=== PATIENT | male | born 1965 | race Caucasian/White ===

== ENCOUNTER 2017-07-11 10:43 | Day surgery (SDC) | payer OTHER ==
[2017-07-11 11:44] VITALS: TEMP 98
[2017-07-11] MEDS ORDERED: LACTATED RINGERS 1,000 ML IV ONE (11:55)
[2017-07-11] MEDS ORDERED: LIDOCAINE 1% 20 ML VIAL (10MG/ML) FOR IV START IV ONE (11:55)
[2017-07-11] MEDS ORDERED: fentaNYL (PF) 50 MCG/ML 2 ML AMP IV ONE (12:01)
[2017-07-11] MEDS ORDERED: PROPOFOL 10 MG/ML 20 ML VIAL IV ONE (12:12)
--- NOTE | 2017-07-11 12:16 | P.GSHP ---
History of Present Illness H&P Date: 07/11/17 Chief Complaint: Dysphagia This is a 52-year-old male referred from Dr. Padgett. Patient has had complaints of dysphagia. He states he has trouble eating solid foods. He's had some minimal difficulty with liquids. Past Medical History Past Medical History: Atrial Fibrillation, Chest Pain / Angina, GERD/Reflux Additional Past Medical History / Comment(s): HX. ANGINA, CARDIAC CATH SHOWED NO BLOCKAGE, History of Any Multi-Drug Resistant Organisms: None Reported Past Surgical History: Heart Catheterization Additional Past Surgical History / Comment(s): LEFT 5TH FINGER SEWN BACK ON Past Anesthesia/Blood Transfusion Reactions: No Reported Reaction Past Psychological History: No Psychological Hx Reported Smoking Status: Former smoker Past Alcohol Use History: Rare Past Drug Use History: None Reported Medications and Allergies Home Medications Medication Instructions Recorded Confirmed Type Citalopram Hydrobromide [CeleXA] 10 mg PO DAILY 07/11/17 07/11/17 History Metoprolol Succinate [Toprol XL] 1 tab PO DAILY 07/11/17 07/11/17 History Omeprazole [PriLOSEC] 10 mg PO DAILY 07/11/17 07/11/17 History Allergies Allergy/AdvReac Type Severity Reaction Status Date / Time codeine AdvReac Nausea Verified 07/11/17 11:42 Penicillins AdvReac Nausea Verified 07/11/17 11:41 Surgical - Exam Vital Signs Temp Pulse Resp BP Pulse Ox 98.0 F 70 16 131/86 97 07/11/17 11:35 07/11/17 11:35 07/11/17 11:35 07/11/17 11:35 07/11/17 11:35 - General well developed, no distress - Eyes PERRL - ENT normal pinna - Neck no masses - Respiratory normal expansion - Cardiovascular Rhythm: regular - Abdomen Abdomen: soft, non tender Assessment and Plan Assessment: Dysphagia. We'll perform EGD.
--- NOTE | 2017-07-11 12:26 | P.OP ---
Date of Procedure: 07/11/17 Preoperative Diagnosis: Dysphagia Postoperative Diagnosis: Duodenal ulcer, Antral gastritis Small hiatal hernia Esophagitis Procedure(s) Performed: EGD Anesthesia: MAC Surgeon: David Jasso Pathology: other (Duodenum, antrum, esophagus) Condition: stable Disposition: PACU Description of Procedure: The patient's placed on the endoscopy table in the lateral position. He received IV sedation. The gastric was placed oropharynx passed in the esophagus and into the stomach. Scope was then placed through the pylorus. The first and second portion of the duodenum appeared inflamed. There is evidence of a small ulcer. This was biopsied. The scope was then brought back the antrum and this was mildly inflamed. Biopsies performed. The scope was then retroflexed and the remainder of the stomach appeared normal. There was a small hiatal hernia. The GE junction was at 38 cm. The distal esophagus appeared inflamed and a biopsies performed. The proximal esophagus appeared normal. Scope was withdrawn for patient.
[2017-07-11 13:00] VITALS: BP 125/83; PULSE 66; RESP 18
== END 2017-07-11 13:08 | disposition home or self-care (01) ==
LOC: ORWHC2ENDO 10:43
PROVIDERS: ATTEND Surgery
DX: K29.50 Unspecified chronic gastritis without bleeding (principal); K21.0 Gastro-esophageal reflux disease with esophagitis; K26.9 Duodenal ulcer, unspecified as acute or chronic, without hemorrhage or perforation; K44.9 Diaphragmatic hernia without obstruction or gangrene; I25.10 Atherosclerotic heart disease of native coronary artery without angina pectoris; I48.91 Unspecified atrial fibrillation; Z88.5 Allergy status to narcotic agent; Z88.0 Allergy status to penicillin; Z79.899 Other long term (current) drug therapy; Z87.891 Personal history of nicotine dependence
CPT/HCPCS: 43239; 88305; 88342; J3010; J2704

== ENCOUNTER 2017-09-11 07:38 | Day surgery (SDC) | payer OTHER ==
[2017-09-08 10:28] VITALS: BMI 30.3
[~2017-09-11 07:38] MED LIST: LACTATED RINGERS 1,000 ML IV SCH
[2017-09-11 08:18] VITALS: RESP 16; TEMP 97.4
[2017-09-11] MEDS ORDERED: LIDOCAINE 1% 20 ML VIAL (10MG/ML) FOR IV START INTRADERMA ONE (08:19)
[2017-09-11] MEDS ORDERED: PROPOFOL 10 MG/ML 20 ML VIAL IV ONE (09:12)
[2017-09-11] MEDS ORDERED: LIDOCAINE 1% INJ 10MG/ML (20 ML MDV) ONE (09:12)
--- NOTE | 2017-09-11 09:16 | P.GSHP ---
History of Present Illness H&P Date: 09/11/17 Chief Complaint: Peptic ulcer disease This is a 52-year-old male referred from Dr. Padgett. Patient presents today for EGD. He has a history of peptic ulcer disease and esophagitis. Past Medical History Past Medical History: Atrial Fibrillation, Chest Pain / Angina, GERD/Reflux, Sleep Apnea/CPAP/BIPAP Additional Past Medical History / Comment(s): uses CPAP, hiatal hernia History of Any Multi-Drug Resistant Organisms: None Reported Past Surgical History: Heart Catheterization, Orthopedic Surgery Additional Past Surgical History / Comment(s): LEFT 5TH FINGER SEWN BACK ON, EGD Past Anesthesia/Blood Transfusion Reactions: No Reported Reaction Smoking Status: Former smoker - Past Family History Mother Family Medical History: Cancer Medications and Allergies Home Medications Medication Instructions Recorded Confirmed Type Citalopram Hydrobromide [CeleXA] 10 mg PO DAILY 07/11/17 09/08/17 History Metoprolol Succinate [Toprol XL] 25 mg PO DAILY 07/11/17 09/08/17 History Omeprazole 40 mg PO DAILY #60 capsule. 07/11/17 09/08/17 Rx Allergies Allergy/AdvReac Type Severity Reaction Status Date / Time codeine AdvReac Nausea Verified 09/11/17 08:07 Penicillins AdvReac Nausea Verified 09/11/17 08:07 Surgical - Exam Vital Signs Temp Pulse Resp BP Pulse Ox 97.4 F L 72 16 124/82 95 09/11/17 08:17 09/11/17 08:17 09/11/17 08:17 09/11/17 08:17 09/11/17 08:17 - General well developed, no distress - Eyes PERRL - ENT normal pinna - Neck no masses - Respiratory normal expansion - Cardiovascular Rhythm: regular - Abdomen Abdomen: soft, non tender Assessment and Plan Assessment: History of peptic ulcer disease. We'll perform EGD.
--- NOTE | 2017-09-11 09:25 | P.OP ---
Date of Procedure: 09/11/17 Preoperative Diagnosis: GERD, peptic ulcer disease Postoperative Diagnosis: Antral gastritis Hiatal hernia Esophagitis Procedure(s) Performed: EGD Anesthesia: MAC Surgeon: David Jasso Pathology: other (Antral, esophagus) Condition: stable Disposition: PACU Description of Procedure: The patient's placed on the endoscopy table lateral position. He received IV sedation. The gastroscope placed oropharynx passed in the esophagus and into the stomach. The scope was then placed through the pylorus. The first and second portion of the duodenum appeared normal. The scope was then brought back the antrum and this appeared mildly inflamed. A biopsies performed. The scope was retroflexed and remainder of the stomach appeared normal. There is moderate size hiatal hernia. The GE junction was at 38 cm. The distal esophagus appeared mildly inflamed. A biopsies performed. The proximal esophagus appeared normal. Scope was withdrawn for patient.
[2017-09-11 10:00] VITALS: BP 110/76; PULSE 68
== END 2017-09-11 10:16 | disposition home or self-care (01) ==
LOC: ORWHC2ENDO 07:38
PROVIDERS: ATTEND Surgery
DX: K21.0 Gastro-esophageal reflux disease with esophagitis (principal); K29.50 Unspecified chronic gastritis without bleeding; K44.9 Diaphragmatic hernia without obstruction or gangrene; I48.91 Unspecified atrial fibrillation; I20.9 Angina pectoris, unspecified; G47.33 Obstructive sleep apnea (adult) (pediatric); Z88.5 Allergy status to narcotic agent; Z88.0 Allergy status to penicillin; Z79.899 Other long term (current) drug therapy; Z87.11 Personal history of peptic ulcer disease; Z87.891 Personal history of nicotine dependence; Z80.9 Family history of malignant neoplasm, unspecified; Z99.89 Dependence on other enabling machines and devices
CPT/HCPCS: 43239; 88305; 88342; J2001; J2704

== ENCOUNTER → 2018-07-20 | Outpatient (CLI) | payer OTHER | END | disposition home or self-care (01) | LOC: LABPAT 13:39 | PROVIDERS: ATTEND Surgery | DX: Z01.818 Encounter for other preprocedural examination (principal); F17.200 Nicotine dependence, unspecified, uncomplicated; D64.9 Anemia, unspecified; K21.9 Gastro-esophageal reflux disease without esophagitis | CPT/HCPCS: 93005 ==

== ENCOUNTER 2018-07-27 06:35 | Observation (INO) | payer OTHER ==
[~2018-07-27 06:35] MED LIST changes: +DEXAMETHASONE SOD PHOSPHATE 10 MG/ML 1 ML VIAL IV ONE; +HEPARIN SODIUM,PORCINE 5,000 UNIT/ML 1 ML VIAL SQ ONE; -LACTATED RINGERS 1,000 ML IV SCH; +LIDOCAINE 1% 20 ML VIAL (10MG/ML) FOR IV START INTRADERMA PRN; +MIDAZOLAM 2 MG/2 ML VIAL IV PRN; +ONDANSETRON 4 MG/2 ML VIAL IVP ONE; +fentaNYL (PF) 50 MCG/ML 2 ML AMP IV PRN
[2018-07-27] MEDS: LACTATED RINGERS 1,000 ML IV SCH (07:15)
--- NOTE | 2018-07-27 07:47 | P.GSHP ---
History of Present Illness H&P Date: 07/27/18 Chief Complaint: GERD This is a 53-year-old male referred from Dr. Henson. The patient has had long- standing problems with reflux esophagitis. The patient underwent recent EGD is found have evidence of esophagitis. Patient has been well informed on the procedure of laparoscopic Abdifatah fundoplication. The patient is aware the risk of the conversion to the open procedure, risk of injury to the stomach, liver and spleen. The patient is also a risk of recurrent GERD and dysphagia symptoms. The patient understands there is a postoperative diet of full liquids for 2 weeks after surgery. Past Medical History Past Medical History: Atrial Fibrillation, Asthma, Chest Pain / Angina, GERD/ Reflux, Sleep Apnea/CPAP/BIPAP Additional Past Medical History / Comment(s): C-PAP MACHINE, HIATAL HERNIA, BACK PAIN (FELL 40 FT & BROKE BACK-2005)., SCRAPES ON ARMS (WORK), INGROWN HAIR ABDOMEN., HX OF RECTAL FISSURE., STATES HE HAS A COUGH- SINUS DRAINAGE, SORE THROAT- STATES HE IS SUPPOSED TO [facility] DR HENSON ON MONDAY (07/26/18) TO SEE IF OK TO HAVE SURGERY MONDAY. History of Any Multi-Drug Resistant Organisms: None Reported Past Surgical History: Heart Catheterization Additional Past Surgical History / Comment(s): LEFT HAND TENDON REPAIR. Past Anesthesia/Blood Transfusion Reactions: No Reported Reaction, Motion Sickness Past Psychological History: Anxiety, Depression Smoking Status: Former smoker Past Alcohol Use History: Rare Additional Past Alcohol Use History / Comment(s): QUIT SMOKING 2010, SMOKED 2 1/ 2-3 PPD, SMOKED FOR 30 YEARS. Past Drug Use History: None Reported - Past Family History Mother Family Medical History: Cancer Additional Family Medical History / Comment(s): LUNG AND BRAIN CANCER Medications and Allergies Home Medications Medication Instructions Recorded Confirmed Type Omeprazole 40 mg PO DAILY #60 capsule. 07/11/17 07/27/18 Rx Acetaminophen Tab [Tylenol Tab] 1,500 mg PO DAILY PRN 07/24/18 07/27/18 History Albuterol Sulfate [Proair Hfa] 2 - 3 puff INHALATION Q6HR PRN 07/24/18 07/27/18 History Citalopram Hydrobromide 20 mg PO HS 07/24/18 07/27/18 History [Citalopram HBr] Ibuprofen [Advil] 600 mg PO DAILY PRN 07/24/18 07/24/18 History Metoprolol Tartrate [Lopressor] 25 mg PO BID 07/24/18 07/27/18 History Allergies Allergy/AdvReac Type Severity Reaction Status Date / Time codeine AdvReac Nausea Verified 07/27/18 06:58 Penicillins AdvReac Nausea Verified 07/27/18 06:58 Surgical - Exam Vital Signs Temp Pulse Resp BP Pulse Ox 97.5 F L 78 18 137/94 94 L 07/27/18 07:07 07/27/18 07:07 07/27/18 07:07 07/27/18 07:07 07/27/18 07:07 - General well developed, no distress - Eyes PERRL - ENT normal pinna - Neck no masses - Respiratory normal expansion - Cardiovascular Rhythm: regular - Abdomen Abdomen: soft, non tender Assessment and Plan Assessment: GERD. We'll perform laparoscopic Abdifatah fundoplication.
[2018-07-27] MEDS ORDERED: HYDROmorphone (PF) 1 MG/ML ONE (07:51)
[2018-07-27] MEDS ORDERED: PROPOFOL 10 MG/ML 20 ML VIAL IV ONE (07:51)
[2018-07-27] MEDS ORDERED: fentaNYL (PF) 50 MCG/ML 2 ML AMP ONE (07:51)
[2018-07-27] MEDS ORDERED: SUCCINYLCHOLINE CHLORIDE 100 MG/5 ML SYR IV ONE (07:51)
[2018-07-27] MEDS ORDERED: LIDOCAINE 1% INJ 10MG/ML (20 ML MDV) ONE (07:51)
[2018-07-27] MEDS ORDERED: GLYCOPYRROLATE 0.2 MG/ML 2 ML VIAL ONE (07:51)
[2018-07-27] MEDS ORDERED: NEOSTIGMINE 1 MG/ML 10 ML VIAL ONE (07:51)
[2018-07-27] MEDS ORDERED: ROCURONIUM BROMIDE 10 MG/ML 10 ML VIAL IV ONE (07:51)
[2018-07-27] MEDS: ceFAZolin IN SWFI 2 GM/20 ML SYRINGE IVP ONE ×2 (07:53→08:24)
[2018-07-27] MEDS ORDERED: BUPIVACAIN-EPI 0.25%-1:200,000 30 ML VIAL SQ ONE (08:24)
[2018-07-27] MEDS ORDERED: LACTATED RINGERS 1,000 ML IV ONE (08:51)
--- NOTE | 2018-07-27 09:30 | P.OP ---
Date of Procedure: 07/27/18 Preoperative Diagnosis: GERD Postoperative Diagnosis: GERD Procedure(s) Performed: Laparoscopic Abdifatah fundoplication Anesthesia: DONNIE Surgeon: David Jasso Estimated Blood Loss (ml): 20 Pathology: none sent Condition: stable Disposition: PACU Description of Procedure: The patient was placed on the operating table in the supine position. The patient received general anesthesia. And was placed in dorsal lithotomy position. The patient was prepped and draped in the usual sterile fashion. The skin incision sites were anesthetized with 1% local Xylocaine. The skin was incised in the left periumbilical area and then using a blade less 5 mm trocar under direct visualization panel cavity was entered. After adequate insufflation the laparoscope was then placed into the peritoneal cavity. Next a 5 mm trochars placed in the right epigastric position. Another 5 millimeter trocar the right lateral position. Another 5 millimeter trocar in the left lateral position a 5 mm trocar is placed in the left epigastric position. And then the initial 5 mm trocar was exchanged for a 10 mm trocar. The left lateral lobe liver was retracted. The hernia was seen. The crural defect was then dissected using the Harmonic scissors device. A 360 crural dissection was performed the esophagus stomach was reduced back into the peritoneal Cavity. The crural defect was then closed using 2-0 Ethibond suture. Next the fundus of the stomach was mobilized using the [place] scissors device. and then a 58-[place] bougie dilator was placed oropharynx passed into the esophagus and stomach the fundal plication wrap was then performed by grasping the fundus posteriorly and bringing it around the esophagus and stomach fundoplication was then performed using 2-0 Ethibond suture. Care was taken that the fundal location rested over top of the intra-abdominal esophagus. There was no injury seen to the stomach or esophagus. The dilator was then withdrawn. The abdomen was irrigated there is no bleeding seen. The trochars were then withdrawn and then skin incision sites were closed using 3-0 Monocryl suture Steri-Strips are applied. Patient thought procedure well and sent to recovery room in stable condition.
[2018-07-27] MEDS: HYDROmorphone 1 MG/ML 1 ML SYRINGE IVP PRN ×4 (10:25→20:04)
[2018-07-27] MEDS ORDERED: ALBUTEROL NEBULIZED 2.5 MG/3 ML INHALATION PRN (12:38)
--- NOTE | 2018-07-27 12:40 | P.CONS ---
History of Present Illness - Reason for Consult Consult date: 07/27/18 Medical management Requesting physician: David Jasso - Chief Complaint GERD - History of Present Illness 53-year-old male with a past medical history significant for sleep apnea, GERD, and back pain, who underwent a laparoscopic Abdifatah fundoplication on 07/27/[address] Henson was consulted for medical management. The patient was recently diagnosed outpatient with bronchitis. The patient was seen postoperatively in the recovery room. The patient is sleepy. He states his pain is tolerable. Per nursing, the patient recently received a dose of Dilaudid. The patient does complain of a sore throat. He denies shortness of breath. Denies chest pain or pressure. Denies nausea or vomiting. Vital signs are stable. The patient is waiting general medical bed assignment. REVIEW OF SYSTEMS: Those systems with pertinent positive or pertinent negative responses have been documented in the HPI PHYSICAL EXAM: GENERAL: This is a 53-year-old male in no apparent distress at the time of examination. Pleasant and cooperative. HEENT: Head is atraumatic, normocephalic. Pupils are equal, round, and reactive to light. Sclerae anicteric. Conjunctivae are clear. Mucus membranes of the mouth are moist. Neck is supple. RESPIRATORY: Clear to auscultation. No wheezes, rales, or rhonchi. No use of accessory muscles. Patient maintaining oxygen saturation greater than 92%. No chest wall tenderness is noted on palpation or with deep breathing. CARDIOVASCULAR: Regular rate and rhythm. S1 and S2 noted. No systolic or diastolic murmur auscultated. No JVD noted. No S3 or S4 noted. GASTROINTESTINAL: Incision sites CDI. No distention noted. Abdomen soft and round. Hypoactive bowel sounds auscultated x 4 quadrants. INTEGUMENTARY: No cyanosis. No jaundice. No rashes noted. No cellulitis noted. EXTREMITIES: 2+ peripheral pulses. No evidence of peripheral edema. No calf tenderness noted. NEUROLOGIC: Cranial nerves II-XII intact. PSYCHIATRIC: Sleepy. Oriented x 3. Appropriate affect. Intact judgement and insight. ASSESSMENT: Gastroesophageal reflux disease and esophagitis status post laparoscopic Abdifatah fundoplication Recent outpatient diagnosis of bronchitis History of sleep apnea History of chronic back pain History of nicotine dependence, quit smoking in 2010 PLAN: Continue postoperative care per Dr. Jasso Pain control Clear liquid diet Home meds as appropriate Monitor labs Monitor vital signs and address as appropriate Further recommendations pending patient's course Thank you for this consultation We will continue to follow with George during his hospitalization Nurse practitioner note has been reviewed by physician. Signing provider agrees with the documented findings, assessment, and plan of care. Past Medical History Past Medical History: Atrial Fibrillation, Asthma, Chest Pain / Angina, GERD/ Reflux, Sleep Apnea/CPAP/BIPAP Additional Past Medical History / Comment(s): C-PAP MACHINE, HIATAL HERNIA, BACK PAIN (FELL 40 FT & BROKE BACK-2005)., SCRAPES ON ARMS (WORK), INGROWN HAIR ABDOMEN., HX OF RECTAL FISSURE., STATES HE HAS A COUGH- SINUS DRAINAGE, SORE THROAT- STATES HE IS SUPPOSED TO [facility] DR HENSON ON MONDAY (07/26/18) TO SEE IF OK TO HAVE SURGERY MONDAY. History of Any Multi-Drug Resistant Organisms: None Reported Past Surgical History: Heart Catheterization Additional Past Surgical History / Comment(s): LEFT HAND TENDON REPAIR. Past Anesthesia/Blood Transfusion Reactions: No Reported Reaction, Motion Sickness Past Psychological History: Anxiety, Depression Smoking Status: Former smoker Past Alcohol Use History: Rare Additional Past Alcohol Use History / Comment(s): QUIT SMOKING 2010, SMOKED 2 1/ 2-3 PPD, SMOKED FOR 30 YEARS. Past Drug Use History: None Reported - Past Family History Mother Family Medical History: Cancer Additional Family Medical History / Comment(s): LUNG AND BRAIN CANCER Medications and Allergies Home Medications Medication Instructions Recorded Confirmed Type Omeprazole 40 mg PO DAILY #60 capsule. 07/11/17 07/27/18 Rx Acetaminophen Tab [Tylenol Tab] 1,500 mg PO DAILY PRN 07/24/18 07/27/18 History Albuterol Sulfate [Proair Hfa] 2 - 3 puff INHALATION Q6HR PRN 07/24/18 07/27/18 History Citalopram Hydrobromide 20 mg PO HS 07/24/18 07/27/18 History [Citalopram HBr] Ibuprofen [Advil] 600 mg PO DAILY PRN 07/24/18 07/24/18 History Metoprolol Tartrate [Lopressor] 25 mg PO BID 07/24/18 07/27/18 History Allergies Allergy/AdvReac Type Severity Reaction Status Date / Time codeine AdvReac Nausea Verified 07/27/18 06:58 Penicillins AdvReac Nausea Verified 07/27/18 06:58 Physical Exam Vitals: Vital Signs Temp Pulse Pulse Resp BP Pulse Ox 07/27/18 12:06 97 16 156/90 94 L 07/27/18 11:40 92 16 166/99 94 L 07/27/18 11:10 104 H 18 144/76 96 07/27/18 10:40 84 16 144/76 94 L 07/27/18 10:25 74 16 148/80 95 07/27/18 10:10 88 16 153/82 98 07/27/18 09:55 79 16 154/80 98 07/27/18 09:40 81 16 163/95 97 07/27/18 09:25 79 16 163/95 97 07/27/18 09:12 97.4 F L 74 14 170/95 94 L 07/27/18 07:07 97.5 F L 78 18 137/94 94 L Intake and Output 07/26/18 07/27/18 07/27/18 22:59 06:59 14:59 Intake Total 1600 Output Total 50 Balance 1550 Intake: IV 1600 Output: Estimated Blood Loss 50
[2018-07-27 13:18] VITALS: BMI 30.5
--- NOTE | 2018-07-27 14:34 | FL ---
EXAMINATION TYPE: FL esophagus cervic/pharynx DATE OF EXAM: 07/27/2018 LIMITED UGI-ESOPHAGRAM: CLINICAL HISTORY: Post Vasquez fundoplication TECHNIQUE: Single contrast technique is utilized with Omnipaque. FINDINGS: Esophagus dilates to normal caliber has normal contour to the distal esophagus. There is se juana stenosis to the level of the Vasquez fundoplication. Initial fluoroscopic images demonstrate cont rast passing through the Vasquez fundoplication. Additional contrast was not administered. The patient became nauseous. Following a short rest patient and 3 overhead radiographs obtained. Contrast remains within the dista l esophagus as well as some contrast into the stomach. No free air is evident. No extravasation of co ntrast. Fluoroscopy time 1.03 minutes Images: 12 IMPRESSION: 1. Severe hesitancy passing through the Vasquez fundoplication. 2. No extravasation of contrast. 3. Consider follow-up examination.
[2018-07-27] MEDS: METOCLOPRAMIDE 5 MG/ML 2 ML VIAL IVP SCH ×3 (14:42→23:29)
[2018-07-27] MEDS: D5-0.45% NACL WITH KCL 20MEQ/L 1,000 ML IV SCH ×2 (14:45→22:11)
[2018-07-27] MEDS: METOPROLOL TARTRATE 25 MG TAB PO SCH (20:04)
[2018-07-27] MEDS: FAMOTIDINE 20 MG/2 ML VIAL IV SCH (20:04)
[2018-07-27] MEDS: ONDANSETRON 4 MG/2 ML VIAL IVP PRN (20:04)
[2018-07-27] MEDS ORDERED: CITALOPRAM HYDROBROMIDE 20 MG TAB PO SCH (21:00)
[2018-07-28] MEDS: HYDROmorphone 1 MG/ML 1 ML SYRINGE IVP PRN ×3 (00:27→09:38)
[2018-07-28] MEDS: ONDANSETRON 4 MG/2 ML VIAL IVP PRN ×2 (03:36→08:11)
[2018-07-28] MEDS: METOCLOPRAMIDE 5 MG/ML 2 ML VIAL IVP SCH ×3 (05:35→17:09)
[2018-07-28] MEDS: LACTATED RINGERS 1,000 ML IV SCH (05:40)
[2018-07-28] MEDS: D5-0.45% NACL WITH KCL 20MEQ/L 1,000 ML IV SCH ×3 (07:05→21:43)
--- NOTE | 2018-07-28 09:27 | FL ---
EXAMINATION TYPE: FL UGI w esophagus DATE OF EXAM: 07/28/2018 COMPARISON: Previous study of yesterday. HISTORY: Status post Arash fundoplication TECHNIQUE: A single contrast UGI study is performed. FINDINGS: The patient swallowed contrast with ease. There is prompt egress of contrast from the esoph brenda into the stomach. There is no evidence of significant obstruction. There is no extravasation of contrast. No significant free air was seen. The ligament of Treitz is in the normal location. There i s contrast within the colon from yesterday's examination. IMPRESSION: STATUS POST ARASH FUNDOPLICATION.
[2018-07-28] MEDS: FAMOTIDINE 20 MG/2 ML VIAL IV SCH ×2 (09:32→20:13)
[2018-07-28] MEDS: METOPROLOL TARTRATE 25 MG TAB PO SCH ×2 (09:32→20:13)
[2018-07-28] MEDS: ENOXAPARIN 40 MG/0.4 ML SYRINGE SQ SCH (09:32)
[2018-07-28] MEDS: DIAZEPAM 5 MG TAB PO PRN ×2 (11:28→20:13)
--- NOTE | 2018-07-28 12:05 | CONS ---
CONSULTATION 53-year-old male, had difficulty with GERD for a long period of time. Tried all the medications that were available, protein pump inhibitors without any success and at this time has proceeded with the Abdifatah fundoplication procedure with Dr. Jasso. He went through it well. He also had a previous history of some outpatient bronchitis. He had been on Levaquin up to the day of admission and surgery. He also has history of some chronic back pain and nicotine dependence, he quit smoking in 2010. At this period of time he feels well. He just had his upper GI which showed to be normal with normal esophageal passage. REVIEW OF SYSTEMS: Was negative and no new blood to report. PHYSICAL EXAMINATION: Blood pressure 132/80, heart rate is in the 70s, respiration is 18 and temperature 98.2. EYES: Pupils are equal, round, reactive to light and accommodation. ENT: Showed tympanic membranes and pharynx to be negative. NECK: Supple. Midline trachea. CHEST: At this time is essentially clear to auscultation. No wheezes, no rhonchi. No accessory muscle use. HEART: Has a regular rate and rhythm, S1 and 2 are noted. No systolic or diastolic murmur. No JVD. No S3, no S4. GI: He has an incision site, CDI. No distention. ABDOMEN: Soft, nontender with no organomegaly. Hypoactive bowel sounds in all 4 quadrants. No palpable organomegaly or mass. Integumentary is negative. 2+ lower extremity pulses. Negative Homans. Cranial 2 through 12 are grossly intact. PSYCHIATRIC: Has rest comfortably. He is very alert at this period of time with minimal amount of pain. ASSESSMENT: 1. Severe gastroesophageal reflux esophagitis status post laparoscopic Abdifatah fundoplication. 2. Recent outpatient history of bronchitis. 3. History of sleep apnea. 4. Nicotine dependence 2010. 5. Some chronic back pain. PLAN: We will proceed with present medications accordingly and probability of discharge per Dr. Jasso. He will follow up with me within 2 weeks. MMODL / IJN: [id number] /
--- NOTE | 2018-07-28 14:42 | P.PN ---
Subjective Progress Note Date: 07/28/18 CHIEF COMPLAINT: Gastroesophageal reflux disease HISTORY OF PRESENT ILLNESS: The patient is a 53-year-old male status post Abdifatah fundoplasty. He reports chronic nausea especially of turning his head. He just completed a repeat esophagram as previous demonstrated edema. PHYSICAL EXAM: VITAL SIGNS: Currently stable. GENERAL: Well-developed in no acute distress. HEENT: No sclera icterus. Extraocular movements grossly intact. Moist buccal mucosa. Head is atraumatic, normocephalic. Hears conversational speech. No nasal drainage. NECK: Supple without lymphadenopathy. CHEST: Non-labored respirations and equal bilateral excursions. CARDIOVASCULAR: Palpable 2+ radial pulses. ABDOMEN: Soft. Nondistended. No peritonitis. MUSCULOSKELETAL: No clubbing, cyanosis or edema. NEUROLOGIC: No focal or lateralizing signs. Cranial nerves II through XII grossly intact. PSYCH: Appropriate affect. Alert and oriented to person, place and time. SKIN: Well perfused. Good skin turgor. ASSESSMENT: 1. Gastroesophageal reflux disease 2. Status post Abdifatah fundoplasty PLAN: 1. Antiemetics including scheduled Reglan and Zofran 2. Recommend Levsin drops including simethicone 3. Also may benefit from Decadron for chronic nausea Objective - Vital Signs Vital signs: Vital Signs Temp 97.3 F L 07/28/18 07:00 Pulse 80 07/28/18 07:00 Resp 14 07/28/18 07:00 BP 102/59 07/28/18 07:00 Pulse Ox 95 07/28/18 07:00 Intake & Output 07/27/18 07/28/18 07/28/18 18:59 06:59 18:59 Intake Total 1600 1550 Output Total 350 300 Balance 1250 1550 -300 Weight 105 kg 105 kg Intake: IV 1600 Intake, IV Titration 1250 Amount D5-0.45% NaCl with KCl 1250 20Meq/l 1,000 ml @ 125 mls/hr IV .Q8H [facility] Rx#: [id number] Oral 300 Output: Urine 300 300 Estimated Blood Loss 50 Other: Voiding Method Urinal Urinal # Voids 4 1 Assessment and Plan (1) Nausea after anesthesia Current Visit: Yes Status: Acute Code(s): T88.59XA - OTHER COMPLICATIONS OF ANESTHESIA, INITIAL ENCOUNTER; R11.0 - NAUSEA SNOMED Code(s): 280122326 (2) History of Abdifatah fundoplication Current Visit: Yes Status: Acute Code(s): Z98.890 - OTHER SPECIFIED POSTPROCEDURAL STATES SNOMED Code(s): 557523839 (3) GERD (gastroesophageal reflux disease) Current Visit: Yes Status: Acute Code(s): K21.9 - GASTRO-ESOPHAGEAL REFLUX DISEASE WITHOUT ESOPHAGITIS SNOMED Code(s): 981468521
[2018-07-28] MEDS: HYOSCYAMINE ORAL DROPS 1.875 MG/15 ML BOTTLE PO SCH ×2 (15:43→20:13)
[2018-07-28] MEDS: SIMETHICONE 40 MG/0.6 ML DROPS 2,000 MG/30 ML BOTTLE PO SCH ×3 (15:43→20:13)
[2018-07-28] MEDS: ONDANSETRON 4 MG/2 ML VIAL IVP SCH (17:08)
[2018-07-28] MEDS: DEXAMETHASONE SOD PHOSPHATE 4 MG/ML 1 ML VIAL IV SCH (17:09)
[2018-07-28 19:50] VITALS: RESP 18
[2018-07-29] MEDS: HYOSCYAMINE ORAL DROPS 1.875 MG/15 ML BOTTLE PO SCH ×3 (00:14→10:25)
[2018-07-29] MEDS: ONDANSETRON 4 MG/2 ML VIAL IVP SCH ×2 (00:14→05:13)
[2018-07-29] MEDS: METOCLOPRAMIDE 5 MG/ML 2 ML VIAL IVP SCH ×2 (00:14→05:13)
[2018-07-29] MEDS: DEXAMETHASONE SOD PHOSPHATE 4 MG/ML 1 ML VIAL IV SCH ×2 (00:15→05:13)
[2018-07-29] MEDS: LACTATED RINGERS 1,000 ML IV SCH (07:19)
[2018-07-29 08:17] LABS: Anion Gap 10 mmol/L; Blood Urea Nitrogen 12 mg/dL (9-20); Calcium 9.3 mg/dL (8.4-10.2); Carbon Dioxide 30 mmol/L (22-30); Chloride 101 mmol/L (98-107); Glucose 114 mg/dL (74-99); Magnesium 2.4 mg/dL (1.6-2.3); Potassium 4.8 mmol/L (3.5-5.1); Sodium 141 mmol/L (137-145)
[2018-07-29 08:38] VITALS: BP 114/70; PULSE 84; TEMP 98
[2018-07-29] MEDS ORDERED: KETOROLAC 30 MG/ML 1 ML VIAL IVP SCH (09:30)
[2018-07-29] MEDS: FAMOTIDINE 20 MG/2 ML VIAL IV SCH (10:24)
[2018-07-29] MEDS: ENOXAPARIN 40 MG/0.4 ML SYRINGE SQ SCH (10:24)
[2018-07-29] MEDS: METOPROLOL TARTRATE 25 MG TAB PO SCH (10:25)
[2018-07-29] MEDS: SIMETHICONE 40 MG/0.6 ML DROPS 2,000 MG/30 ML BOTTLE PO SCH (10:25)
--- NOTE | 2018-07-29 11:39 | PN ---
PROGRESS NOTE He is doing well and moderately severe neck pain he had resolved with the use of Valium. He had Toradol also which helped. At this time, he feels comfortable. He had some fluids and gel to eat, drink, and he is having no abdominal pain, nausea and vomiting has actually resolved. His lab work came back today with a sodium of 140, potassium 4.8, sugar right around 114, creatinine is 0.9. REVIEW OF SYSTEMS: At this time is within normal limits. PHYSICAL EXAMINATION: His blood pressure is 114/70, heart rate is in the 80s. Respiratory rate 16, temperature is 98. EYES: Pupils are equal, round, react to light and accommodation. ENT showed tympanic membranes and pharynx to be negative. NECK: Supple. Midline trachea. Chest essentially clear to auscultation. Heart sinus rhythm with no murmur. ABDOMEN: Soft. He has good bowel sounds throughout. No organomegaly. Nontender. Lower extremities: Good palpable lower extremity pulses. Negative Homans bilaterally. No evidence of rash and all allergies are stable with some postnasal drip. ASSESSMENT: 1. Postop day number two for Abdifatah fundoplication surgery. 2. History of severe gastroesophageal reflux. 3. Resolving tracheobronchitis. 4. Resolving nausea and vomiting controlled with Reglan and Zofran. 5. Severe muscle spasms on the neck, which has been negative. PLAN: At this time, after evaluation, patient with Dr. Eng's permission can go home and will follow up with me up on a as needed basis over the next month. MMODL / IJN: [id number] /
--- NOTE | 2018-07-29 12:12 | P.PN ---
Subjective Progress Note Date: 07/29/18 CHIEF COMPLAINT: Gastroesophageal reflux disease HISTORY OF PRESENT ILLNESS: The patient is a 53-year-old male status post Abdifatah fundoplasty. Yesterday, he had chronic nausea especially following his pain meds of Diluadid. Multiple antiemetics including Decadron, Reglan, Zofran , IV fluids were given. Today he reports he feels very well. He is eager to go home. He is tolerating diet. PHYSICAL EXAM: VITAL SIGNS: Reviewed. GENERAL: Well-developed in no acute distress. HEENT: No sclera icterus. Extraocular movements grossly intact. Moist buccal mucosa. Head is atraumatic, normocephalic. Hears conversational speech. No nasal drainage. NECK: Supple without lymphadenopathy. CHEST: Non-labored respirations and equal bilateral excursions. CARDIOVASCULAR: Palpable 2+ radial pulses. ABDOMEN: Soft. Nondistended. Incisions intact. MUSCULOSKELETAL: No clubbing, cyanosis or edema. NEUROLOGIC: No focal or lateralizing signs. Cranial nerves II through XII grossly intact. PSYCH: Appropriate affect. Alert and oriented to person, place and time. SKIN: Well perfused. Good skin turgor. ASSESSMENT: 1. Gastroesophageal reflux disease 2. Status post Abdifatah fundoplasty PLAN: 1. Will give trial of ibuprofen for pain. 2. Likely discharge home with anti-gas medication including antinausea medication Objective - Vital Signs Vital signs: Vital Signs Temp 98.0 F 07/29/18 08:15 Pulse 84 07/29/18 08:15 Resp 18 07/29/18 08:15 BP 114/70 07/29/18 08:15 Pulse Ox 93 L 07/29/18 08:15 Intake & Output 07/28/18 07/29/18 07/29/18 18:59 06:59 18:59 Intake Total 1000 1730 Output Total 300 Balance 700 1730 Weight 105 kg Intake: Intake, IV Titration 1000 1250 Amount D5-0.45% NaCl with KCl 1000 1250 20Meq/l 1,000 ml @ 125 mls/hr IV .Q8H LATRICE Rx#: [id number] Oral 480 Output: Urine 300 Other: Voiding Method Urinal Urinal # Voids 1 4 - Labs CBC & Chem 7: 07/29/18 06:59 Labs: Abnormal Lab Results - Last 24 Hours (Table) 07/29/18 Range/Units 06:59 Glucose 114 H (74-99) mg/dL Magnesium 2.4 H (1.6-2.3) mg/dL Assessment and Plan (1) Nausea after anesthesia Current Visit: Yes Status: Acute Code(s): T88.59XA - OTHER COMPLICATIONS OF ANESTHESIA, INITIAL ENCOUNTER; R11.0 - NAUSEA SNOMED Code(s): 142827129 (2) History of Abdifatah fundoplication Current Visit: Yes Status: Acute Code(s): Z98.890 - OTHER SPECIFIED POSTPROCEDURAL STATES SNOMED Code(s): 648315287 (3) GERD (gastroesophageal reflux disease) Current Visit: Yes Status: Acute Code(s): K21.9 - GASTRO-ESOPHAGEAL REFLUX DISEASE WITHOUT ESOPHAGITIS SNOMED Code(s): 223041532
[2018-07-29] MEDS ORDERED: IBUPROFEN 600 MG TAB PO SCH (12:15)
== END 2018-07-29 13:45 | disposition home or self-care (01) ==
LOC: ORWHC2ENDO 06:35 → EDSTATUS 08:00 → 4SSUR 09:07 → ORWHC2ENDO 22:45 → 4SSUR 23:45
PROVIDERS: ADMIT Surgery; ATTEND Surgery
DX: K21.0 Gastro-esophageal reflux disease with esophagitis (principal); I48.91 Unspecified atrial fibrillation; J45.909 Unspecified asthma, uncomplicated; J40 Bronchitis, not specified as acute or chronic; G89.29 Other chronic pain; G47.33 Obstructive sleep apnea (adult) (pediatric); Z99.89 Dependence on other enabling machines and devices; M62.838 Other muscle spasm; M54.9 Dorsalgia, unspecified; F41.9 Anxiety disorder, unspecified; F32.9 Major depressive disorder, single episode, unspecified; Z87.891 Personal history of nicotine dependence; Z80.8 Family history of malignant neoplasm of other organs or systems; Z80.1 Family history of malignant neoplasm of trachea, bronchus and lung; Z79.899 Other long term (current) drug therapy; Z88.5 Allergy status to narcotic agent; Z88.0 Allergy status to penicillin
CPT/HCPCS: 80048; 83735; 74210; 74240; 43280; G0378 ×3; J2250; J1644; J1100 ×3; J2710; J2765 ×3; J2405 ×3; J2001; J1650 ×2; J3010; J1885; J1170 ×2; J0330; J2704; J0690; Q9967 ×2

== ENCOUNTER → 2018-11-23 | Outpatient (CLI) | payer OTHER ==
--- NOTE | 2018-11-23 10:17 | NM ---
Nuclear medicine hepatobiliary scan. HISTORY: Pain. DOSAGE: The patient received 8 ounces and sure plus and 5.1 mCi of Technetium 99m Choletec. FINDINGS: There is normal hepatic extraction. The gallbladder is seen by 20 minutes. There is bilia ry to bowel clearance by 50 minutes. Ejection fraction is 77%. IMPRESSION: 1. Normal hepatobiliary exam
== END ==
LOC: RADNMMAIN 06:45
PROVIDERS: ATTEND Surgery
DX: K82.8 Other specified diseases of gallbladder (principal)
CPT/HCPCS: 78227; A9537; J2805

== ENCOUNTER 2020-11-18 02:02 | Emergency (ER) | payer OTHER ==
[2020-11-18 02:06] VITALS: TEMP 97.9
[2020-11-18] MEDS ORDERED: SODIUM CHLORIDE 0.9% 1,000 ML IV STA ×2 (02:24)
[2020-11-18] MEDS ORDERED: ONDANSETRON 4 MG/2 ML VIAL IVP STA (02:24)
[2020-11-18] MEDS ORDERED: KETOROLAC 15 MG/ML 1 ML VIAL IVP STA (02:24)
[2020-11-18] MEDS ORDERED: MORPHINE SULFATE 4 MG/ML SYRINGE IV STA (02:24)
--- NOTE | 2020-11-18 02:25 | ED ---
Abdominal Pain HPI - General Chief Complaint: Abdominal Pain Stated Complaint: Back/Abd/Groin Pain Time Seen by Provider: 11/18/20 02:23 Source: patient, RN notes reviewed, old records reviewed Mode of arrival: ambulatory Limitations: no limitations - History of Present Illness Initial Comments: This is a 55-year-old male DF for evaluation patient presents today for evaluation regards to bowel pain severe abdominal pain left flank pain radiating into groin. No history of kidney stones no fevers no nausea vomiting or diarrhea. Sudden onset of pain in symptoms tonight. MD Complaint: flank pain -: hour(s) Location: LLQ, RLQ, suprapubic Radiation: suprapubic Severity: moderate Severity scale (1-10): 6 Quality: stabbing Consistency: constant Improves With: nothing Worsens With: nothing Context: other (none) Associated Symptoms: nausea Treatments Prior to Arrival: other (none) - Related Data Home Medications Medication Instructions Recorded Confirmed Acetaminophen Tab [Tylenol Tab] 1,500 mg PO DAILY PRN 07/24/18 07/28/18 Albuterol Sulfate [Proair Hfa] 2 - 3 puff INHALATION RT-Q6H PRN 07/24/18 07/28/18 Citalopram Hydrobromide 20 mg PO HS 07/24/18 07/28/18 [Citalopram HBr] Ibuprofen [Advil] 600 mg PO DAILY PRN 07/24/18 07/28/18 Metoprolol Tartrate [Lopressor] 25 mg PO BID 07/24/18 07/28/18 Previous Rx's Medication Instructions Recorded Omeprazole 40 mg PO DAILY #60 capsule. 07/11/17 Docusate [Colace] 100 mg PO BID #20 capsule 07/27/18 HYDROcodone/APAP 7.5-325MG [[place] 1 tab PO Q4H PRN 3 Days #18 tab 07/27/18 7.5-325] Ibuprofen [Motrin] 600 mg PO Q8HR PRN #20 tab 07/29/18 Ondansetron Odt [Zofran ODT] 4 mg PO Q8HR PRN #5 tab 07/29/18 Simethicone 40 mg/0.6 ml Drops 40 mg PO Q6HR PRN #30 ml 07/29/18 [Mylicon Drops] Allergies Allergy/AdvReac Type Severity Reaction Status Date / Time codeine AdvReac Nausea Verified 11/18/20 02:06 Penicillins AdvReac Nausea Verified 11/18/20 02:06 Review of Systems ROS Statement: Those systems with pertinent positive or pertinent negative responses have been documented in the HPI. ROS Other: All systems not noted in ROS Statement are negative. Past Medical History Past Medical History: Atrial Fibrillation, Chest Pain / Angina, GERD/Reflux, Sleep Apnea/CPAP/BIPAP Additional Past Medical History / Comment(s): uses CPAP, hiatal hernia History of Any Multi-Drug Resistant Organisms: None Reported Past Surgical History: Heart Catheterization, Orthopedic Surgery Additional Past Surgical History / Comment(s): LEFT 5TH FINGER SEWN BACK ON, EGD Past Anesthesia/Blood Transfusion Reactions: No Reported Reaction Past Psychological History: Anxiety Smoking Status: Former smoker Past Alcohol Use History: Rare Past Drug Use History: None Reported - Past Family History Mother Family Medical History: Cancer Additional Family Medical History / Comment(s): LUNG AND BRAIN CANCER General Exam Limitations: no limitations General appearance: alert, in no apparent distress, anxious Head exam: Present: atraumatic, normocephalic, normal inspection Eye exam: Present: normal appearance, PERRL, EOMI. Absent: scleral icterus, conjunctival injection, periorbital swelling ENT exam: Present: normal exam, mucous membranes moist Neck exam: Present: normal inspection. Absent: tenderness, meningismus, lymphadenopathy Respiratory exam: Present: normal lung sounds bilaterally. Absent: respiratory distress, wheezes, rales, rhonchi, stridor Cardiovascular Exam: Present: regular rate, normal rhythm, normal heart sounds. Absent: systolic murmur, diastolic murmur, rubs, gallop, clicks GI/Abdominal exam: Present: soft, normal bowel sounds. Absent: distended, tenderness, guarding, rebound, rigid Extremities exam: Present: normal inspection, full ROM, normal capillary refill. Absent: tenderness, pedal edema, joint swelling, calf tenderness Back exam: Present: normal inspection Neurological exam: Present: alert, oriented X3, CN II-XII intact Psychiatric exam: Present: normal affect, normal mood Skin exam: Present: warm, dry, intact, normal color. Absent: rash Course Vital Signs 11/18/20 02:03 Temperature 97.9 F Pulse Rate 81 Respiratory 22 Rate Blood Pressure 149/96 O2 Sat by Pulse 96 Oximetry - Reevaluation(s) Reevaluation #1: 11/18/20 02:25 Medical records reviewed Reevaluation #2: 11/18/20 03:29 Patient has adequate pain control currently Reevaluation #3: 11/18/20 03:30 Patient informed results, questions have been answered Medical Decision Making - Medical Decision Making 55 male with kidney stone, recently passed. Patient can be discharged home - Lab Data Result diagrams: 11/18/20 02:42 11/18/20 02:42 Lab Results 11/18/20 11/18/20 Range/Units 02:42 02:42 WBC 6.2 (3.8-10.6) k/uL RBC 5.74 (4.30-5.90) m/uL Hgb 16.1 (13.0-17.5) gm/dL Hct 45.7 (39.0-53.0) % MCV 79.7 L (80.0-100.0) fL MCH 28.1 (25.0-35.0) pg MCHC 35.3 (31.0-37.0) g/dL RDW 13.3 (11.5-15.5) % Plt Count 176 (150-450) k/uL MPV 7.3 Neutrophils % 62 % Lymphocytes % 27 % Monocytes % 7 % Eosinophils % 2 % Basophils % 1 % Neutrophils # 3.9 (1.3-7.7) k/uL Lymphocytes # 1.7 (1.0-4.8) k/uL Monocytes # 0.5 (0-1.0) k/uL Eosinophils # 0.1 (0-0.7) k/uL Basophils # 0.0 (0-0.2) k/uL Sodium 139 (137-145) mmol/L Potassium 4.3 (3.5-5.1) mmol/L Chloride 102 (98-107) mmol/L Carbon Dioxide 25 (22-30) mmol/L Anion Gap 12 mmol/L BUN 19 (9-20) mg/dL Creatinine 0.96 (0.66-1.25) mg/dL Est GFR (CKD-EPI)AfAm >90 (>60 ml/min/1.73 sqM) Est GFR (CKD-EPI)NonAf >90 (>60 ml/min/1.73 sqM) Glucose 102 H (74-99) mg/dL Calcium 9.4 (8.4-10.2) mg/dL Total Bilirubin 0.6 (0.2-1.3) mg/dL AST 42 (17-59) U/L ALT 61 H (4-49) U/L Alkaline Phosphatase 76 (38-126) U/L Total Protein 7.4 (6.3-8.2) g/dL Albumin 4.6 (3.5-5.0) g/dL Amylase 61 (30-110) U/L Lipase 84 (23-300) U/L - Radiology Data Radiology results: report reviewed (CT abdomen and pelvis shows recently passed kidney stone), image reviewed Disposition Clinical Impression: Kidney stone, Abdominal pain Disposition: HOME SELF-CARE Condition: Good Instructions (If sedation given, give patient instructions): Kidney Stones (ED) Is patient prescribed a controlled substance at d/c from ED?: No Referrals: None,Stated [Primary Care Provider] - 1-2 days
[2020-11-18 02:51] LABS: Basophils % (A) 1 %; Eosinophils # (A) 0.1 k/uL (0-0.7); Eosinophils % (A) 2 %; HCT 45.7 % (39.0-53.0); HGB 16.1 gm/dL (13.0-17.5); Lymphocytes # (A) 1.7 k/uL (1.0-4.8); Lymphocytes % (A) 27 %; MCH 28.1 pg (25.0-35.0); MCHC 35.3 g/dL (31.0-37.0); MCV 79.7 fL (80.0-100.0); Mean Platelet Volume 7.3; Monocytes # (A) 0.5 k/uL (0-1.0); Monocytes % (A) 7 %; Neutrophils # (A) 3.9 k/uL (1.3-7.7); Neutrophils % (A) 62 %; Platelet Count 176 k/uL (150-450); RBC 5.74 m/uL (4.30-5.90); RDW 13.3 % (11.5-15.5); WBC 6.2 k/uL (3.8-10.6)
[2020-11-18 03:17] LABS: ALT 61 U/L (4-49); AST 42 U/L (17-59); African American GFR (CKD) >90 (>60 ml/min/1.73 sqM); Albumin 4.6 g/dL (3.5-5.0); Alkaline Phosphatase 76 U/L (38-126); Amylase 61 U/L (30-110); Anion Gap 12 mmol/L; Blood Urea Nitrogen 19 mg/dL (9-20); Calcium 9.4 mg/dL (8.4-10.2); Carbon Dioxide 25 mmol/L (22-30); Chloride 102 mmol/L (98-107); Glucose 102 mg/dL (74-99); Lipase 84 U/L (23-300); Non-African American GFR(CKD) >90 (>60 ml/min/1.73 sqM); Potassium 4.3 mmol/L (3.5-5.1); Sodium 139 mmol/L (137-145); Total Bilirubin 0.6 mg/dL (0.2-1.3); Total Protein 7.4 g/dL (6.3-8.2)
--- NOTE | 2020-11-18 03:20 | CT ---
EXAM: CT Abdomen and Pelvis Without Intravenous Contrast CLINICAL HISTORY: ITS.REASON CT Reason: pain TECHNIQUE: Axial computed tomography images of the abdomen and pelvis without intravenous contrast. CTDI is 14.87 mGy and DLP is 881.60 mGy-cm. This CT exam was performed using one or more of the following dose reduction techniques: automated exposure control, adjustment of the mA and/or kV according to patient size, and/or use of iterative reconstruction technique. COMPARISON: No relevant prior studies available. FINDINGS: Lung bases: No mass. No consolidation. ABDOMEN: Liver: Tiny cyst. Enlarged liver. Gallbladder and bile ducts: Unremarkable. Pancreas: No ductal dilation. Spleen: Unremarkable. Adrenals: Unremarkable. Kidneys and ureters: No obstructing stones. Minimal right hydroureteronephrosis with no stone in the ureter. There is a 4 mm stone layering in the central bladder. Stomach and bowel: No bowel obstruction. No bowel wall thickening. PELVIS: Appendix: No evidence of appendicitis. Bladder: No stones. Reproductive: Unremarkable. ABDOMEN and PELVIS: Intraperitoneal space: Unremarkable. Bones/joints: No acute fractures. Soft tissues: Unremarkable. Vasculature: No abdominal aortic aneurysm. Lymph nodes: No enlarged lymph nodes. IMPRESSION: Minimal right hydroureteronephrosis with no stone in the ureter. There is a 4 mm stone layering in the central bladder, likely the recently passed stone.
[2020-11-18 03:46] VITALS: BP 123/82; PULSE 77; RESP 16
== END 2020-11-18 03:46 | disposition home or self-care (01) ==
LOC: EC 02:02
DX: N20.0 Calculus of kidney (principal); I48.91 Unspecified atrial fibrillation; K21.9 Gastro-esophageal reflux disease without esophagitis; G47.30 Sleep apnea, unspecified; Z79.899 Other long term (current) drug therapy; Z88.0 Allergy status to penicillin; Z88.5 Allergy status to narcotic agent; Z87.891 Personal history of nicotine dependence; Z99.89 Dependence on other enabling machines and devices
CPT/HCPCS: 80053; 82150; 83690; 85025; 74176; 99284; 96374; 96375 ×2; 96361; J2270; J2405; J1885

== ENCOUNTER → 2020-11-25 | Outpatient (CLI) | payer OTHER ==
--- NOTE | 2020-11-25 16:05 | CONS ---
CONSULTATION DATE OF SERVICE: 11/25/2020 This 55-year-old gentleman had [facility] for obstructive sleep apnea-hypopnea syndrome. HISTORY OF PRESENT ILLNESS/SLEEP-WAKE EVALUATION: The patient has a history of obstructive sleep apnea for about 6 years, but stopped using his CPAP equipment more than one year ago and did not have some supplies at that time. His sleep schedule from 10 to 1 a.m. until 4:30 a.m. on working days and from 10 to 12 until 6 a.m. on days off. No problems with falling asleep, although he has TV in bedroom. The patient sleeps in different position. Has snoring and awakenings from sleep with episodes of stopped breathing during sleep. The patient wakes up from sleep up to 5 times with up to 3 episodes of nocturia. In the morning, patient wakes up tired. Falling asleep during the day. Has episodes of irritability, anxiety. [place] Sleepiness Scale significantly increased to 18. He may take naps during lunch at work at noon to 12:20. No vivid dreams during naps. No history of hypnagogic hallucinations or cataplexy. No history of sleep paralysis. PAST MEDICAL HISTORY: Positive for coronary artery disease, angina, atrial fibrillation, anxiety, acid reflux, COPD. PAST SURGICAL HISTORY: Surgery for hiatal hernia. MEDICATIONS: Metoprolol once a day, citalopram once a day. SOCIAL HISTORY: Positive for smoking for 35 years, quit in 2010. Alcohol consumption: None at the present time. FAMILY HISTORY: Cancer, heart problems. REVIEW OF SYSTEMS: Multiple awakenings from sleep, sleepiness during the day. PHYSICAL EXAMINATION: GENERAL: gentleman without distress. VITAL SIGNS: BP 153/93, HR 77, RR 16, height 6 feet and 1/2 inch, weight 231.4 pounds, temperature 97.0, oxygen saturation at room air 95%. BMI 30.8. HEENT: PERRLA, EOMI. Oropharynx moderately low position of soft palate. Mallampati 2-3. NECK: Extremely wide neck 19 inches in circumference. LUNGS: Clear to percussion and to auscultation. Good air exchange. No wheezing or rhonchi. HEART: S1, S2 regular. No murmurs, gallops, or rubs. ABDOMEN: Soft and nontender. Bowel sounds are present. No organomegaly appreciated. EXTREMITIES: No clubbing or cyanosis. CHIEF DEVELOPMENT OFFICER: Awake, alert, and oriented X3. Cranial nerves 2 to 7 intact. There is no fasciculation or atrophy. noted. No focal deficits observed. IMPRESSION: 1. History of obstructive sleep apnea. Patient stopped using any therapy more than one year ago. Snoring, awakenings from sleep. Wide neck. Significant excessive daytime sleepiness. Obstructive sleep apnea-hypopnea syndrome. 2. Extremely high sleepiness according to [place] Sleepiness Scale of 18, dictate necessity to include hypersomnia to differential diagnosis. 3. History of angina. 4. History of atrial fibrillation. 5. Hypertension in the office. 6. Anxiety. 7. History of hiatal hernia, status post surgical treatment. 8. Chronic obstructive pulmonary disease. History of long time smoking, quit about 9 years ago. 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 PLAN: 1. Polysomnography for evaluation of patient's breathing during sleep. 2. CPAP/BiPAP titration if sleep study confirms obstructive sleep apnea-hypopnea syndrome. 3. Preferable position during sleep on the side. 4. No driving if patient feels any sleepiness. 5. I will see patient for follow up visit to explain results of testing and following plan. Thank you very much for referring this patient for consultation. Sincerely, Meng Welsh MD, PhD, FAASM Diplomat of [employer] [facility] MMODL / IJN: [id number] /
== END | disposition home or self-care (01) ==
LOC: SLEEP 14:42
PROVIDERS: ATTEND Internal Medicine
DX: G47.33 Obstructive sleep apnea (adult) (pediatric) (principal); G47.10 Hypersomnia, unspecified; I10 Essential (primary) hypertension; F41.9 Anxiety disorder, unspecified; J44.9 Chronic obstructive pulmonary disease, unspecified; Z98.890 Other specified postprocedural states; Z87.19 Personal history of other diseases of the digestive system; Z86.79 Personal history of other diseases of the circulatory system; Z79.899 Other long term (current) drug therapy
CPT/HCPCS: 99211

== ENCOUNTER → 2022-02-04 | Outpatient (CLI) | payer OTHER ==
[2022-02-04 14:42] LABS: ALT 51 U/L (10-49); AST 33 U/L (14-35); Chol/HDL Ratio 7.61 Ratio; LDL Cholesterol,Calculated 164.9 mg/dL (0.0-131.0)
== END | disposition home or self-care (01) ==
LOC: LABWHC1 08:21
PROVIDERS: ATTEND Internal Medicine Cardiovascular Disease
DX: E78.2 Mixed hyperlipidemia (principal)
CPT/HCPCS: 36415; 80061; 84450; 84460

== ENCOUNTER → 2022-11-19 | Outpatient (CLI) | payer OTHER ==
[2022-11-19 17:24] LABS: ALT 54 U/L (10-49); AST 40 U/L (14-35); Chol/HDL Ratio 4.38 Ratio; LDL Cholesterol,Calculated 113.4 mg/dL (0.0-131.0)
== END | disposition home or self-care (01) ==
LOC: LABWHC1 09:05
PROVIDERS: ATTEND Internal Medicine Cardiovascular Disease
DX: E78.2 Mixed hyperlipidemia (principal)
CPT/HCPCS: 36415; 80061; 84450; 84460

== ENCOUNTER 2023-06-22 08:38 | Day surgery (SDC) | payer OTHER ==
[2023-06-21 10:40] VITALS: BMI 32.3
[2023-06-22] MEDS ORDERED: LACTATED RINGERS 1,000 ML IV SCH (08:59)
[2023-06-22] MEDS ORDERED: LIDOCAINE 1% (10MG/ML) FOR IV START INTRADERMA ONE (09:06)
[2023-06-22 09:21] VITALS: TEMP 97.8
[2023-06-22] MEDS ORDERED: PROPOFOL 10 MG/ML 20 ML VIAL IV ONE (09:43)
--- NOTE | 2023-06-22 09:44 | P.GSHP ---
History of Present Illness H&P Date: 06/22/23 Chief Complaint: Screening colonoscopy This a 58-year-old male presents today for screening colonoscopy. Patient denies a significant GI complaints. Past Medical History Past Medical History: Atrial Fibrillation, Chest Pain / Angina, GERD/Reflux, Hearing Disorder / Deafness, Hyperlipidemia, Osteoarthritis (OA), Sleep Apnea/CPAP/BIPAP Additional Past Medical History / Comment(s): Uses CPAP, hiatal hernia, angina, hx kidney stones, some hearing loss. History of Any Multi-Drug Resistant Organisms: None Reported Past Surgical History: Heart Catheterization, Orthopedic Surgery Additional Past Surgical History / Comment(s): LEFT 5TH FINGER SEWN BACK ON, EGD, right elbow surgery due infected bursitis. Past Anesthesia/Blood Transfusion Reactions: No Reported Reaction, Motion Sickness Past Psychological History: Anxiety Smoking Status: Former smoker Past Alcohol Use History: Rare Additional Past Alcohol Use History / Comment(s): QUIT SMOKING IN 2010, SMOKED 2 1/2-3 PPD FOR 30 YEARS. Past Drug Use History: Marijuana Additional Drug Use History / Comment(s): Occasional Marijuana use, aware no use 24 hrs prior to procedure. - Past Family History Mother Family Medical History: Cancer Additional Family Medical History / Comment(s): LUNG AND BRAIN CANCER. Medications and Allergies Home Medications Medication Instructions Recorded Confirmed Type Cholesterol Med (Unknown Name) 40 mg PO HS 06/21/23 06/22/23 History Citalopram Hydrobromide 40 mg PO HS 06/21/23 06/22/23 History [Citalopram HBr] Metoprolol Succinate [Metoprolol 25 mg PO HS 06/21/23 06/22/23 History Succinate ER] Allergies Allergy/AdvReac Type Severity Reaction Status Date / Time codeine AdvReac Nausea Verified 06/22/23 08:59 Penicillins AdvReac Nausea Verified 06/22/23 08:59 Surgical - Exam Vital Signs Temp Pulse Resp BP Pulse Ox 97.8 F 73 18 144/65 93 L 06/22/23 09:00 06/22/23 09:00 06/22/23 09:00 06/22/23 09:00 06/22/23 09:00 - General well developed, well nourished, no distress - Eyes PERRL - ENT normal pinna - Neck no masses - Respiratory normal expansion - Cardiovascular Rhythm: regular - Abdomen Abdomen: soft, non tender Assessment and Plan Assessment: We'll perform screening colonoscopy.
--- NOTE | 2023-06-22 09:55 | P.OP ---
Date of Procedure: 06/22/23 Preoperative Diagnosis: Screening colonoscopy Postoperative Diagnosis: Normal colon Procedure(s) Performed: Colonoscopy Anesthesia: MAC Surgeon: David Jasso Pathology: none sent Condition: stable Disposition: PACU Description of Procedure: PROCEDURE: The patient was placed on the endoscopy table in the lateral position. Digital rectal examination was performed which revealed no abnormalities. The prostate was symmetrical without nodules. Flexible colonoscope was then placed in the patient's anus and passed throughout the entire colon. The ileocecal valve was visualized. The cecum, ascending, transverse, descending and sigmoid colon were normal. The rectum was normal as well. There were no masses, polyps or diverticula noted in the entire colon. SUMMARY OF FINDINGS: Normal colonoscopy.
[2023-06-22 10:40] VITALS: BP 109/75; PULSE 78; RESP 18
== END 2023-06-22 10:46 | disposition home or self-care (01) ==
LOC: ORWHC2ENDO 08:38
PROVIDERS: ATTEND Surgery
DX: Z12.11 Encounter for screening for malignant neoplasm of colon (principal); I48.91 Unspecified atrial fibrillation; I20.2 Refractory angina pectoris; K21.9 Gastro-esophageal reflux disease without esophagitis; E78.5 Hyperlipidemia, unspecified; H91.90 Unspecified hearing loss, unspecified ear; M19.90 Unspecified osteoarthritis, unspecified site; G47.33 Obstructive sleep apnea (adult) (pediatric); Z87.442 Personal history of urinary calculi; K44.9 Diaphragmatic hernia without obstruction or gangrene; Z98.890 Other specified postprocedural states; F41.9 Anxiety disorder, unspecified; Z87.891 Personal history of nicotine dependence; F10.90 Alcohol use, unspecified, uncomplicated; F12.90 Cannabis use, unspecified, uncomplicated; Z80.1 Family history of malignant neoplasm of trachea, bronchus and lung; Z80.9 Family history of malignant neoplasm, unspecified; Z88.5 Allergy status to narcotic agent; Z88.0 Allergy status to penicillin; Z79.891 Long term (current) use of opiate analgesic; Z79.02 Long term (current) use of antithrombotics/antiplatelets; Z79.899 Other long term (current) drug therapy
CPT/HCPCS: 45378; J2704

== ENCOUNTER → 2023-07-21 | Outpatient (CLI) | payer OTHER ==
--- NOTE | 2023-07-21 10:34 | MR ---
EXAMINATION TYPE: MR lumbar spine wo con DATE OF EXAM: 07/21/2023 COMPARISON: NONE HISTORY: Low back pain, pain/numbness in naun legs TECHNIQUE: T1 and T2 axial and sagittal images of the lumbar spine are submitted. FINDINGS: There is no abnormal signal seen within the visualized spinal cord or paraspinal soft tissu es. Nonspecific thickening subcentimeter nodularity left adrenal gland most likely related to benign adenoma or mild hyperplasia. At L1-2 there is no degenerative disc disease, disc herniation or canal stenosis. Very minimal left p aracentral disc bulging. Neural foramina patent. At L2-3 there is no disc herniation or canal stenosis. No foraminal encroachment. At L3-4 there is no disc herniation or canal stenosis. No foraminal encroachment. At L4-5 there is mild disc desiccation with grade 1 anterolisthesis. There is a broad-based disc bulg ing with flattening of the thecal sac. Hypertrophy of the ligamentum flavum and facets. Mild bilatera l foraminal encroachment. At L5-S1 there is mild facet arthropathy. No disc herniation or canal stenosis. No foraminal protrusi on. IMPRESSION: 1. Mild disc desiccation L3-4 and L4-5. There are subligamentous 2. At L1-L2 there is minimal left paracentral disc bulging with tiny protrusion which may extend fabio g the upper margin of the L2 segment.
== END | disposition home or self-care (01) ==
LOC: RADMRIMAIN 08:12
PROVIDERS: ATTEND Family Medicine
DX: M51.16 Intervertebral disc disorders with radiculopathy, lumbar region (principal)
CPT/HCPCS: 72148

== ENCOUNTER → 2024-03-06 | Outpatient (CLI) | payer OTHER ==
--- NOTE | 2024-03-06 09:14 | US ---
EXAMINATION TYPE: US scrotum with doppler. Grayscale and color Doppler Duplex imaging performed of ethan worrell scrotum. DATE OF EXAM: 03/06/2024 COMPARISON: CT abdomen and pelvis 11/18/2020, abdominal ultrasound 03/06/2024 CLINICAL INDICATION: Male, 58 years old with history of N50.811 RIGHT TESTICULAR PAIN; Dull pain righ t testicle x 2 days. EXAM MEASUREMENTS: TESTICLES: Right Testicle: 4.5 x 3.1 x 1.9 cm Left Testicle: 4.0 x 2.9 x 2.2 cm EPIDIDYMIS HEAD: Right Epididymis: 1.0 x 0.9 x 0.9 cm. *Anechoic area seen within: 0.4 x 0.5 x 0.5 cm. Consistent wit h an epididymal cyst. Left Epididymis: 0.7 x 1.4 x 0.8 cm Doppler performed to assess for testicular vascularity; good bilateral color flow and waveforms are s een. Presence of hydroceles: Yes on the left: 1.4 x 0.9 x 0.8 cm. Presence of varicoceles: Questionable on the right-vessels measure up to 3 mm. IMPRESSION: 1. No evidence of testicular torsion or mass. 2. Trace left hydrocele. 3. Borderline right-sided varicocele. Consider further evaluation with CT abdomen and pelvis to asses s for possible upstream obstruction.
--- NOTE | 2024-03-06 09:38 | US ---
EXAMINATION TYPE: US abdomen complete DATE OF EXAM: 03/06/2024 COMPARISON: CT 2020 CLINICAL INDICATION: Male, 58 years old with history of R10.31 RLQ PAIN N50.811 RIGHT TESTICULAR PAIN ; Dull pain right side x 2 days. TECHNIQUE: Multiple sonographic images of the abdomen are obtained. FINDINGS: EXAM MEASUREMENTS: Liver Length: 19.4 cm Gallbladder Wall: 0.29 cm CBD: 0.35 cm Spleen: 12.0 cm Right Kidney: 11.2 x 5.6 x 5.5 cm Left Kidney: 12.5 x 7.1 x 6.3 cm FRAMEWORK DEVELOPER NOTES: Exam is limited due to patient body habitus and gas. Pancreas: Obscured Liver: *Enlarged, coarsened echotexture with increased echogenicity. *Anechoic area seen measurin.3 x 1.3 x 1.1 cm. Gallbladder: *Internal echoes versus artifact seen within: 2.3 x 1.5 x 1.8 cm. Evidence for sonographic Samuels's sign: No CBD: Portions seen appear wnl Spleen: Appears wnl Right Kidney: No hydronephrosis or masses seen Left Kidney: Anechoic area seen lower pole: 0.9 x 0.9 x 0.8 cm. Upper IVC: Appears wnl Abd Aorta: Proximal segment and iliac arteries were obscured. Portions seen appear wnl. The visualized portions of the upper IVC and abdominal air within normal limits. No hydronephrosis or solid masses involving both kidneys. No nephrolithiasis. Subcentimeter cyst identified within the le ft kidney. Spleen appears within normal limits. The common bile duct is within normal limits. Gallbla dder sludge identified. No wall thickening, shadowing calculi, or surrounding fluid. Negative sonogra phic Samuels sign. Liver is enlarged with coarse in echotexture and diffusely increased echogenicity. There is a left hepatic lobe cyst measuring up to 1.3 cm and corresponds to prior CT. The pancreas is obscured by overlying bowel gas. IMPRESSION: 1. Hepatomegaly with coarsened echotexture suggesting hepatocellular disease. Correlate with serum ma rkers. 1.3 cm cyst identified corresponding to prior CT in 2020. 2. Gallbladder sludge without evidence for acute cholecystitis.
== END | disposition home or self-care (01) ==
LOC: RADUSWWP 07:06
PROVIDERS: ATTEND Family Medicine
DX: I86.1 Scrotal varices (principal); K82.8 Other specified diseases of gallbladder; N43.3 Hydrocele, unspecified
CPT/HCPCS: 76700; 76870; 93975

== ENCOUNTER → 2024-03-12 | Outpatient (CLI) | payer OTHER ==
--- NOTE | 2024-03-12 19:00 | CT ---
EXAMINATION TYPE: CT abdomen pelvis wo/w con DATE OF EXAM: 03/12/2024 COMPARISON: 11/18/2020 HISTORY: 58-year-old male R93.41, RLQ pain, abn findings on dx imaging TECHNIQUE: Contiguous axial scanning of the abdomen and pelvis before and after administration of 100 ml Isovue 300 IV contrast. Delayed images through the kidneys and coronal/sagittal reconstructions performed. CT DLP: 3140.50 mGycm Automated exposure control for dose reduction was used. FINDINGS: The heart is upper limits of normal in size pericardial effusion. Lung bases clear without pleural ef fusion. Post surgical change at the GE junction likely related to prior Arash fundoplication. Liver enlarged at 20.7 cm mildly diminished attenuation. Stable 9 mm left hepatic dome cyst. No addit ional focal liver lesion. Portal venous system is patent. No biliary ductal dilatation. Gallbladder, adrenal glands, left kidney, and pancreas within normal limits. A couple punctate 3 mm nonobstructive right renal calculi. Otherwise, symmetric uptake and excretion of contrast from both kidneys. Spleen mildly enlarged at 15.8 cm (versus 15.2 cm, previously) with a small anterior splenule. Fusiform prominence to the proximal celiac axis at 1.5 cm with slight narrowing at its origin. Correl ation can be made for any clinical symptoms may be seen with median arcuate ligament syndrome. No dilated small bowel, free fluid, or free air. No mesenteric or retroperitoneal lymphadenopathy. Mild scattered stool. Normal appendix. Mildly redundant sigmoid colon. No perisplenic inflammatory ch bri. Bladder urine distended. Prostate gland enlargement 5.5 cm wide. No abnormal fluid collection in the pelvis or pelvic lymphadenopathy. Bones: Mild facet arthropathy lower lumbar spine. Mild degenerative change of the SI joints. IMPRESSION: 1. HEPATOMEGALY AT 20.7 CM WITH AT LEAST MILD HEPATIC STEATOSIS. 2. SPLENOMEGALY AT 15.8 CM (VERSUS 15.2 CM, PREVIOUSLY). 3. PREVIOUS ARASH FUNDOPLICATION. 4. A COUPLE PUNCTATE 3 MM NONOBSTRUCTIVE RIGHT RENAL CALCULI. 5. FUSIFORM PROMINENCE TO THE PROXIMAL CELIAC AXIS UP TO 1.5 CM AND RELATIVE NARROWING AT ITS ORIGIN. THIS MAY BE ANATOMIC VARIATION. CORRELATE FOR ANY CLINICAL SYMPTOMS THAT MAY BE SEEN WITH MEDIAN ARC UATE LIGAMENT SYNDROME. 6. PROSTATOMEGALY AT 5.5 CM WIDE.
== END | disposition home or self-care (01) ==
LOC: RADCTMAIN 13:02
PROVIDERS: ATTEND Family Medicine
DX: N20.0 Calculus of kidney (principal); N40.0 Benign prostatic hyperplasia without lower urinary tract symptoms; R93.41 Abnormal radiologic findings on diagnostic imaging of renal pelvis, ureter, or bladder; R93.5 Abnormal findings on diagnostic imaging of other abdominal regions, including retroperitoneum; K76.0 Fatty (change of) liver, not elsewhere classified; R16.2 Hepatomegaly with splenomegaly, not elsewhere classified
CPT/HCPCS: 74178; Q9967